=== PATIENT | male | born 1990 | race Two or more races ===

== ENCOUNTER 2019-04-03 16:28 | Inpatient (IN) | payer SELFPAY ==
[~2019-04-03] VITALS: Ht 172.7 cm; Wt 83.9 kg
[2019-04-03] MEDS ORDERED: HYDROcodone/APAP 5/325MG 1 TAB TABLET PO ONE (17:00)
[2019-04-03] MEDS ORDERED: ORPHENADRINE CITRATE 60 MG/2 ML VIAL. IM ONE (17:30)
[2019-04-03] MEDS ORDERED: IBUPROFEN 200 MG TABLET. PO ONE (17:30)
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
--- NOTE | 2019-04-03 18:10 | RAD ---
Exam: Right ankle 3 views. Right tib-fib 2 views. Right and left foot 3 views INDICATION: Pain TECHNIQUE: Frontal, lateral and oblique views of the right ankle, right and left feet. Frontal and lateral views of the right tib-fib Comparisons: None FINDINGS: Right ankle: There is a comminuted obliquely oriented fracture through the lateral malleolus extending to the tibiotalar joint. Transverse fracture at the medial malleolus which extends to the tibiotalar joint. There is mild translocation of the talus laterally at the tibiotalar joint. Right foot: No other fractures are seen. Bone mineralization is normal. Joint spaces are well-maintained. Left foot: Obliquely oriented fracture at the mid to distal fifth metatarsal with some surrounding callus formation. Joint spaces are well-maintained. Soft tissues are unremarkable. Right tib-fib: Redemonstration of distal tibia and fibula fractures. No other fracture seen. Diffuse soft tissue swelling of the ankle. IMPRESSION: 1. Obliquely oriented fracture at the lateral malleolus extending into the tibiotalar joint. There is mild to moderate displacement at the fracture site. 2. Transverse fracture at the medial malleolus with moderate displacement at the fracture site. 3. Lateral translocation of the talus in relation to the tibia at the tibiotalar joint. 4. Obliquely oriented fracture at the left fifth metatarsal with some callus formation suggesting subacute pathology. Correlate with point tenderness. 5. No acute osseous abnormality of the right foot. Electronically signed by: Kale Silva MD (04/03/2019 6:07 PM) [id number]
[2019-04-03 18:46] LABS: BASO % 0 % (0-3); EOS % 0 % (0-3); HEMATOCRIT 38.2 % (39.0-53.0); HEMOGLOBIN 13.6 g/dL (13.0-17.5); LYMPH # 0.6 x10^3/uL (1.0-4.8); LYMPH % 11 % (24-48); MEAN CORPUSCULAR HEMOGLOBIN 34 pg (25-35); MEAN CORPUSCULAR HGB CONC 36 g/dL (31-37); MEAN CORPUSCULAR VOLUME 96 fL (79-100); MONO # 0.7 x10^3/uL (0.0-1.1); MONO % 12 % (0-9); NEUT # 4.7 x10^3/uL (1.8-7.7); NEUT % 77 % (31-73); PLATELET COUNT 171 x10^3/uL (140-400); RED CELL DISTRIBUTION WIDTH 12.7 % (11.5-14.5)
[2019-04-03 18:55] LABS: PROTHROMBIN TIME PATIENT 13.4 SEC (11.7-14.0)
[2019-04-03 18:57] LABS: CALCIUM 9.1 mg/dL (8.5-10.1); CREATININE 0.9 mg/dL (0.7-1.3); GFR 101.2; POTASSIUM 3.4 mmol/L (3.5-5.1)
[2019-04-03] MEDS: IV NORMAL SALINE 1000ML BAG 1,000 ML IV SCH (18:59)
[2019-04-03] MEDS ORDERED: ONDANSETRON PF 4 MG/2 ML VIAL. IV PRN (19:00)
[2019-04-03 19:02] LABS: ALBUMIN 4.2 g/dL (3.4-5.0); ALBUMIN/GLOBULIN RATIO 1.4 (1.0-1.7); TOTAL BILIRUBIN 1.9 mg/dL (0.2-1.0); TOTAL PROTEIN 7.3 g/dL (6.4-8.2)
--- NOTE | 2019-04-03 19:14 | RAD ---
CT right foot without contrast TECHNIQUE: Helical multiplanar reconstructed noncontrast CT imaging of the right ankle was acquired renal contrast was given. HISTORY: Abnormal x-ray, and fractures of the right ankle. PQRS statement: CT scans at this facility use dose reduction including either automated exposure control, iterative reconstructions, and /or weight based radiation dosing via mA and kV modification when appropriate to reduce radiation dose to as low as reasonably achievable. COMPARISON: Foot x-rays April 03, 2019. FINDINGS: Small 2 mm chip fracture at the superior aspect of the cuboid on sagittal image 43. Acute traumatic comminuted mildly buckled and angled fracture of the upper aspect of the lateral malleolus and distal fibula metadiaphysis. Fracturing likely involves the general area of the tibiofibular ligament attachment. Acute traumatic transverse oriented fracture of the medial malleolus distracted inferior from the tibial plafond retaining its somewhat normal relationship with the adjacent talus. However the tibial plafond and is subluxed medial relative to the talus by 1.5 cm. There are small subcentimeter osseous loose bodies within the tibiotalar joint anteriorly and posteriorly. No talus osteochondral lesion evident. The talocalcaneal joint is intact. Calcaneus intact. The cuneiforms, navicular and metatarsals and toes are intact. Extensive soft tissue edema and ankle and foot. No obvious entrapment of the tendons within the fractures although the distracted medial malleolus tibial plafond fracture may increase the risk for future entrapment. Os trigonum noted. IMPRESSION: 1. Acute traumatic fractures of the lateral malleolus and medial malleolus with mild lateral subluxation of the tibial plafond at the tibiotalar joint. Numerous subcentimeter osseous intra-articular loose bodies at the tibiotalar joint. 2. Separate small 2 mm chip fracture of the upper cortex of the cuboid. Electronically signed by: Adrian Ferro MD (04/03/2019 7:11 PM) [facility]
[2019-04-03] MEDS: oxyCODONE/APAP 5/325 1 TAB TABLET PO PRN (22:26)
[2019-04-03] MEDS ORDERED: diphenhydrAMINE 50 MG/ML VIAL IVP PRN (22:30)
[2019-04-03 23:00] VITALS: BP 131/85
[2019-04-04] VITALS (12 sets, daily range): BP systolic 108–152; BP diastolic 66–104
[2019-04-04] MEDS: IV NORMAL SALINE 1000ML BAG 1,000 ML IV SCH ×5 (00:24→20:00)
[2019-04-04] MEDS: fentaNYL PF VIAL 100 MCG/2 ML VIAL IV PRN ×3 (00:43→08:17)
[2019-04-04] MEDS ORDERED: IV RINGERS,LACTATED 1000ML 1,000 ML IV SCH (07:05)
[2019-04-04] MEDS ORDERED: MORPHINE SULFATE 2 MG/ML VIAL. IV PRN (07:15)
[2019-04-04] MEDS ORDERED: fentaNYL PF VIAL 100 MCG/2 ML VIAL IV PRN ×2 (07:15)
[2019-04-04] MEDS ORDERED: ONDANSETRON PF 4 MG/2 ML VIAL. IV PRN (07:15)
[2019-04-04] MEDS ORDERED: PROCHLORPERAZINE 10 MG/2 ML VIAL. IV PRN (07:15)
[2019-04-04] MEDS ORDERED: HYDROmorphone 2 MG/ML VIAL IV PRN (07:15)
[2019-04-04] MEDS ORDERED: BUPIVACAINE-EPI 0.5%-1:200000 MPF 30 ML VIAL. INJ ONE (07:30)
[2019-04-04] MEDS ORDERED: fentaNYL PF VIAL 100 MCG/2 ML VIAL ONE ×4 (07:54→11:24)
[2019-04-04] MEDS ORDERED: PROPOFOL 20 ML IV ONE (07:57)
[2019-04-04] MEDS ORDERED: LIDOCAINE 2% PF 5 ML VIAL. ONE (07:57)
[2019-04-04] MEDS ORDERED: DEXAMETHASONE SOD PHOS 4 MG/ML VIAL ONE (07:57)
[2019-04-04] MEDS ORDERED: ONDANSETRON PF 4 MG/2 ML VIAL. ONE (07:57)
[2019-04-04] MEDS ORDERED: MIDAZOLAM HCL/PF 2 MG/2 ML VIAL. ONE (07:58)
[2019-04-04] MEDS ORDERED: SEVOFLURANE 61 TO 120 MINUTES. IH ONE (09:36)
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
[2019-04-04] MEDS: oxyCODONE/APAP 5/325 1 TAB TABLET PO PRN ×3 (12:25→21:02)
[2019-04-04] MEDS ORDERED: HALOPERIDOL LACTATE 5 MG/ML VIAL. IVP PRN (12:30)
[2019-04-04] MEDS ORDERED: cloNIDine HCL 0.1 MG TABLET PO PRN (12:30)
[2019-04-04] MEDS ORDERED: LORazepam 1 MG TABLET PO PRN ×2 (12:30)
[2019-04-04] MEDS ORDERED: diphenhydrAMINE 50 MG/ML VIAL IVP PRN (12:30)
[2019-04-04] MEDS ORDERED: POTASSIUM CHLORIDE 20 MEQ TABLET.ER. PO ONE (12:30)
[2019-04-04] MEDS ORDERED: MULTIVIT INFUSN,ADULT 4,VIT K 10 ML, THIAMINE INJ 100 MG, FOLIC ACID INJ 1 MG in IV NOR... IV SCH (13:00)
--- NOTE | 2019-04-04 13:33 | NUR ---
SS following for discharge planning. SS reviewed pt chart. Pt is self pay pt. HCFS following for self pay status. Pt is from home and is currently on room air. No discharge needs noted at this time. SS will continue to follow for discharge planning.
--- NOTE | 2019-04-04 17:19 | PDOC4 ---
Operative Note Operative Note Date of surgery: 04/04/2019 Preoperative diagnosis: Displaced bimalleolar right ankle fracture Postoperative diagnosis: Same Procedure: Operative reduction internal fixation right bimalleolar ankle fracture Surgeon: Chris Dias Anesthesia: Gen. Estimated blood loss: 25 mL Complications: None Operative indications: Please see my detailed orthopedic consultation for detailed operative indications and note that I did cover with him the instability of the ankle the necessity of reduction and fixation and the nonweightbearing status depending on his healing possibility of infection nerve or blood vessel damage medical or other anesthetic competitions among others and the fact that he has to keep off of this with strict nonweightbearing elevate and ice to help with the swelling to avoid wound complications. He agrees to proceed with surgical evaluation and treatment. Operative text: Patient was identified procedure verified patient placed in the supine position on operating table. After adequate amounts of general anesthesia were administered the right lower extremity was prepped and draped in standard sterile fashion with a thigh tourniquet. After timeout was performed patient pr ocedure identified and verified the right lower extremity was exsanguinated by elevation and tourniquet inflated to 350 mmHg curvilinear incision was made over the medial malleolus. Subperiosteal dissection was carried out and 2 guidewires were placed to accommodate 4.0 cannulated screws with anatomic reduction of the medial malleolus lateral approach was carried out to the distal fibula with subperiosteal dissection carried out anatomic reduction and a 6-hole Ken distal fibular locking plate was placed an initial cortical screw was placed for placement distal locking screws were then placed under fluoroscopic guidance and the remainder of cortical screws placed with anatomic reduction of the talus in the ankle joint mortise and satisfactory reduction and placement of hardware under multiple fluoroscopic views thorough irrigation carried out normal saline solution subcutaneous closure with buried Vicryl suture skin closure with dennys sterile dressings were applied followed by a posterior splint. Patient was returned to recovery room in stable condition having tolerated the procedure well toes were noted be warm pink find deflation of the tourniquet after a total tourniquet time approximately 1 hour LULÚ MCGOWAN MD Apr 04, 2019 17:19
[2019-04-04 20:18] LABS: AMPHETAMINE/METHAMPHETAMINE NEG (NEG); BARBITURATES NEG (NEG); BENZODIAZEPINES POS (NEG); CANNABINOIDS POS (NEG); COCAINE NEG (NEG); METHADONE NEG (NEG); OPIATES POS (NEG); PHENCYCLIDINE NEG (NEG)
[2019-04-05] MEDS: oxyCODONE/APAP 5/325 1 TAB TABLET PO PRN ×5 (01:04→19:47)
[2019-04-05 03:00] VITALS: BP 118/72
[2019-04-05] MEDS: IV NORMAL SALINE 1000ML BAG 1,000 ML IV SCH ×2 (06:00→16:00)
[2019-04-05 06:23] LABS: BASO % 0 % (0-3); EOS % 0 % (0-3); HEMATOCRIT 32.6 % (39.0-53.0); HEMOGLOBIN 11.7 g/dL (13.0-17.5); LYMPH # 1.2 x10^3/uL (1.0-4.8); LYMPH % 16 % (24-48); MEAN CORPUSCULAR HEMOGLOBIN 35 pg (25-35); MEAN CORPUSCULAR HGB CONC 36 g/dL (31-37); MEAN CORPUSCULAR VOLUME 97 fL (79-100); MONO # 1.2 x10^3/uL (0.0-1.1); MONO % 16 % (0-9); NEUT # 5.1 x10^3/uL (1.8-7.7); NEUT % 68 % (31-73); PLATELET COUNT 162 x10^3/uL (140-400); RED BLOOD COUNT 3.37 x10^6/uL (4.30-5.70); RED CELL DISTRIBUTION WIDTH 12.4 % (11.5-14.5); WHITE BLOOD COUNT 7.4 x10^3/uL (4.0-11.0)
[2019-04-05 06:42] LABS: ALBUMIN 3.1 g/dL (3.4-5.0); CALCIUM 8.4 mg/dL (8.5-10.1); CREATININE 0.7 mg/dL (0.7-1.3); GFR 135.3; POTASSIUM 3.5 mmol/L (3.5-5.1); TOTAL BILIRUBIN 0.7 mg/dL (0.2-1.0); TOTAL PROTEIN 6.3 g/dL (6.4-8.2)
[2019-04-05 07:00] VITALS: BP 109/69
[2019-04-05] MEDS ORDERED: POTASSIUM CHLORIDE 20 MEQ TABLET.ER. PO SCH (08:00)
--- NOTE | 2019-04-05 08:56 | PDOC ---
ORTHO PROGRESS NOTES Subjective Patient states pain remains at 7/10, and states he cannot bear weight on left foot r/t fractured metatarsal. Post-op Day: 1 Procedure ORIF Right ankle fracture with plate and screws. Vitals Vital Signs Date Time Temp Pulse Resp B/P (MAP) Pulse Ox O2 Delivery O2 Flow Rate FiO2 04/05/19 07:00 98.2 91 18 109/69 (82) 97 Room Air 98.2 04/04/19 18:20 10.0 Labs Laboratory Tests Test 04/03/19 18:40 04/04/19 19:48 04/05/19 05:00 White Blood Count 6.0 x10^3/uL (4.0-11.0) 7.4 x10^3/uL (4.0-11.0) Red Blood Count 4.00 x10^6/uL (4.30-5.70) 3.37 x10^6/uL (4.30-5.70) Hemoglobin 13.6 g/dL (13.0-17.5) 11.7 g/dL (13.0-17.5) Hematocrit 38.2 % (39.0-53.0) 32.6 % (39.0-53.0) Mean Corpuscular Volume 96 fL (79-100) 97 fL (79-100) Mean Corpuscular Hemoglobin 34 pg (25-35) 35 pg (25-35) Mean Corpuscular Hemoglobin Concent 36 g/dL (31-37) 36 g/dL (31-37) Red Cell Distribution Width 12.7 % (11.5-14.5) 12.4 % (11.5-14.5) Platelet Count 171 x10^3/uL (140-400) 162 x10^3/uL (140-400) Neutrophils (%) (Auto) 77 % (31-73) 68 % (31-73) Lymphocytes (%) (Auto) 11 % (24-48) 16 % (24-48) Monocytes (%) (Auto) 12 % (0-9) 16 % (0-9) Eosinophils (%) (Auto) 0 % (0-3) 0 % (0-3) Basophils (%) (Auto) 0 % (0-3) 0 % (0-3) Neutrophils # (Auto) 4.7 x10^3/uL (1.8-7.7) 5.1 x10^3/uL (1.8-7.7) Lymphocytes # (Auto) 0.6 x10^3/uL (1.0-4.8) 1.2 x10^3/uL (1.0-4.8) Monocytes # (Auto) 0.7 x10^3/uL (0.0-1.1) 1.2 x10^3/uL (0.0-1.1) Eosinophils # (Auto) 0.0 x10^3/uL (0.0-0.7) 0.0 x10^3/uL (0.0-0.7) Basophils # (Auto) 0.0 x10^3/uL (0.0-0.2) 0.0 x10^3/uL (0.0-0.2) Prothrombin Time 13.4 SEC (11.7-14.0) Prothromb Time International Ratio 1.1 (0.8-1.1) Sodium Level 136 mmol/L (136-145) 139 mmol/L (136-145) Potassium Level 3.4 mmol/L (3.5-5.1) 3.5 mmol/L (3.5-5.1) Chloride Level 97 mmol/L (98-107) 102 mmol/L (98-107) Carbon Dioxide Level 29 mmol/L (21-32) 27 mmol/L (21-32) Anion Gap 10 (6-14) 10 (6-14) Blood Urea Nitrogen 8 mg/dL (8-26) 3 mg/dL (8-26) Creatinine 0.9 mg/dL (0.7-1.3) 0.7 mg/dL (0.7-1.3) Estimated GFR (Cockcroft-Gault) 101.2 135.3 BUN/Creatinine Ratio 9 (6-20) 4 (6-20) Glucose Level 172 mg/dL (70-99) 106 mg/dL (70-99) Calcium Level 9.1 mg/dL (8.5-10.1) 8.4 mg/dL (8.5-10.1) Total Bilirubin 1.9 mg/dL (0.2-1.0) 0.7 mg/dL (0.2-1.0) Aspartate Amino Transf (AST/SGOT) 82 U/L (15-37) 41 U/L (15-37) Alanine Aminotransferase (ALT/SGPT) 100 U/L (16-63) 61 U/L (16-63) Alkaline Phosphatase 91 U/L (46-116) 69 U/L (46-116) Total Protein 7.3 g/dL (6.4-8.2) 6.3 g/dL (6.4-8.2) Albumin 4.2 g/dL (3.4-5.0) 3.1 g/dL (3.4-5.0) Albumin/Globulin Ratio 1.4 (1.0-1.7) 1.0 (1.0-1.7) Urine Opiates Screen Pos (NEG) Urine Methadone Screen Neg (NEG) Urine Barbiturates Neg (NEG) Urine Phencyclidine Screen Neg (NEG) Urine Amphetamine/Methamphetamine Neg (NEG) Urine Benzodiazepines Screen Pos (NEG) Urine Cocaine Screen Neg (NEG) Urine Cannabinoids Screen Pos (NEG) Urine Ethyl Alcohol Neg (NEG) Laboratory Tests Test 04/04/19 19:48 04/05/19 05:00 Urine Opiates Screen Pos (NEG) Urine Methadone Screen Neg (NEG) Urine Barbiturates Neg (NEG) Urine Phencyclidine Screen Neg (NEG) Urine Amphetamine/Methamphetamine Neg (NEG) Urine Benzodiazepines Screen Pos (NEG) Urine Cocaine Screen Neg (NEG) Urine Cannabinoids Screen Pos (NEG) Urine Ethyl Alcohol Neg (NEG) White Blood Count 7.4 x10^3/uL (4.0-11.0) Red Blood Count 3.37 x10^6/uL (4.30-5.70) Hemoglobin 11.7 g/dL (13.0-17.5) Hematocrit 32.6 % (39.0-53.0) Mean Corpuscular Volume 97 fL (79-100) Mean Corpuscular Hemoglobin 35 pg (25-35) Mean Corpuscular Hemoglobin Concent 36 g/dL (31-37) Red Cell Distribution Width 12.4 % (11.5-14.5) Platelet Count 162 x10^3/uL (140-400) Neutrophils (%) (Auto) 68 % (31-73) Lymphocytes (%) (Auto) 16 % (24-48) Monocytes (%) (Auto) 16 % (0-9) Eosinophils (%) (Auto) 0 % (0-3) Basophils (%) (Auto) 0 % (0-3) Neutrophils # (Auto) 5.1 x10^3/uL (1.8-7.7) Lymphocytes # (Auto) 1.2 x10^3/uL (1.0-4.8) Monocytes # (Auto) 1.2 x10^3/uL (0.0-1.1) Eosinophils # (Auto) 0.0 x10^3/uL (0.0-0.7) Basophils # (Auto) 0.0 x10^3/uL (0.0-0.2) Sodium Level 139 mmol/L (136-145) Potassium Level 3.5 mmol/L (3.5-5.1) Chloride Level 102 mmol/L (98-107) Carbon Dioxide Level 27 mmol/L (21-32) Anion Gap 10 (6-14) Blood Urea Nitrogen 3 mg/dL (8-26) Creatinine 0.7 mg/dL (0.7-1.3) Estimated GFR (Cockcroft-Gault) 135.3 BUN/Creatinine Ratio 4 (6-20) Glucose Level 106 mg/dL (70-99) Calcium Level 8.4 mg/dL (8.5-10.1) Total Bilirubin 0.7 mg/dL (0.2-1.0) Aspartate Amino Transf (AST/SGOT) 41 U/L (15-37) Alanine Aminotransferase (ALT/SGPT) 61 U/L (16-63) Alkaline Phosphatase 69 U/L (46-116) Total Protein 6.3 g/dL (6.4-8.2) Albumin 3.1 g/dL (3.4-5.0) Albumin/Globulin Ratio 1.0 (1.0-1.7) Notes awake and alert Assessment and Plan POD # 1 S/P ORIF right ankle fracture motor and sensory intact distally moving toes on request splint in place Will need cast shoe for left foot for ambulation PT for crutch training NAHED FERNANDEZ APRN Apr 05, 2019 08:56
[2019-04-05] MEDS ORDERED: MULTIVITAMIN with MINERAL TABLET. PO SCH (09:00)
[2019-04-05] MEDS ORDERED: FOLIC ACID 1 MG TABLET. PO SCH (09:00)
[2019-04-05] MEDS ORDERED: THIAMINE 100 MG TABLET. PO SCH (09:00)
[2019-04-05] MEDS ORDERED: THIAMINE INJ 100 MG in IV DEXTROSE 5% 50 ML IV SCH (09:00)
[2019-04-05] MEDS ORDERED: THIAMINE IM 200 MG/2 ML VIAL. IM SCH (09:00)
--- NOTE | 2019-04-05 10:50 | PDOC ---
PROGRESS NOTES History of Present Illness History of Present Illness VTE Prophylaxis Ordered VTE Prophylaxis Devices: No VTE Pharmacological Prophylaxi: Yes Assessment/Plan Assessment/Plan IMPRESSION: 1. Obliquely oriented fracture at the lateral malleolus extending into the tibiotalar joint. There is mild to moderate displacement at the fracture site. 2. Transverse fracture at the medial malleolus with moderate displacement at the fracture site. 3. Lateral translocation of the talus in relation to the tibia at the tibiotalar joint. 4. Obliquely oriented fracture at the left fifth metatarsal with some callus formation suggesting subacute pathology. 5. obesity 6. THC ABUSE 7. ALCOHOL ABUSE PLAN ADMIT [facility]TH[facility] following po PAIN CONTROL DVT PROPHYLAXIS ALCOHOL WITHDRAWAL PRECAUTIONS PT for crutch training 34 MIN PT EXAM, CHART REVIEW d/c planning, > 50% OF TIME SPENT WITH EXAM, CHART REVIEW, PT CARE COORDINATION Vitals Vitals Vital Signs Date Time Temp Pulse Resp B/P (MAP) Pulse Ox O2 Delivery O2 Flow Rate FiO2 04/05/19 09:01 Room Air 04/05/19 07:00 98.2 91 18 109/69 (82) 97 98.2 04/04/19 18:20 10.0 Physical Exam General: Alert, Oriented X3, Cooperative, mild distress Heart: Regular rate, Normal S1, Normal S2 Abdomen: Normal bowel sounds, Soft Extremities: No cyanosis Skin: No significant lesion Labs LABS Laboratory Tests Test 04/04/19 19:48 04/05/19 05:00 Urine Opiates Screen Pos (NEG) Urine Methadone Screen Neg (NEG) Urine Barbiturates Neg (NEG) Urine Phencyclidine Screen Neg (NEG) Urine Amphetamine/Methamphetamine Neg (NEG) Urine Benzodiazepines Screen Pos (NEG) Urine Cocaine Screen Neg (NEG) Urine Cannabinoids Screen Pos (NEG) Urine Ethyl Alcohol Neg (NEG) White Blood Count 7.4 x10^3/uL (4.0-11.0) Red Blood Count 3.37 x10^6/uL (4.30-5.70) Hemoglobin 11.7 g/dL (13.0-17.5) Hematocrit 32.6 % (39.0-53.0) Mean Corpuscular Volume 97 fL (79-100) Mean Corpuscular Hemoglobin 35 pg (25-35) Mean Corpuscular Hemoglobin Concent 36 g/dL (31-37) Red Cell Distribution Width 12.4 % (11.5-14.5) Platelet Count 162 x10^3/uL (140-400) Neutrophils (%) (Auto) 68 % (31-73) Lymphocytes (%) (Auto) 16 % (24-48) Monocytes (%) (Auto) 16 % (0-9) Eosinophils (%) (Auto) 0 % (0-3) Basophils (%) (Auto) 0 % (0-3) Neutrophils # (Auto) 5.1 x10^3/uL (1.8-7.7) Lymphocytes # (Auto) 1.2 x10^3/uL (1.0-4.8) Monocytes # (Auto) 1.2 x10^3/uL (0.0-1.1) Eosinophils # (Auto) 0.0 x10^3/uL (0.0-0.7) Basophils # (Auto) 0.0 x10^3/uL (0.0-0.2) Sodium Level 139 mmol/L (136-145) Potassium Level 3.5 mmol/L (3.5-5.1) Chloride Level 102 mmol/L (98-107) Carbon Dioxide Level 27 mmol/L (21-32) Anion Gap 10 (6-14) Blood Urea Nitrogen 3 mg/dL (8-26) Creatinine 0.7 mg/dL (0.7-1.3) Estimated GFR (Cockcroft-Gault) 135.3 BUN/Creatinine Ratio 4 (6-20) Glucose Level 106 mg/dL (70-99) Calcium Level 8.4 mg/dL (8.5-10.1) Total Bilirubin 0.7 mg/dL (0.2-1.0) Aspartate Amino Transf (AST/SGOT) 41 U/L (15-37) Alanine Aminotransferase (ALT/SGPT) 61 U/L (16-63) Alkaline Phosphatase 69 U/L (46-116) Total Protein 6.3 g/dL (6.4-8.2) Albumin 3.1 g/dL (3.4-5.0) Albumin/Globulin Ratio 1.0 (1.0-1.7) Assessment and Plan Assessmemt and Plan Problems Medical Problems: (1) Fracture of fifth metacarpal bone Status: Acute (2) Malleolar fracture Status: Acute (3) Tibia fracture Status: Acute Comment Review of Relevant I have reviewed the following items stephanie (where applicable) has been applied. Labs Laboratory Tests Test 04/03/19 18:40 04/04/19 19:48 04/05/19 05:00 White Blood Count 6.0 x10^3/uL (4.0-11.0) 7.4 x10^3/uL (4.0-11.0) Red Blood Count 4.00 x10^6/uL (4.30-5.70) 3.37 x10^6/uL (4.30-5.70) Hemoglobin 13.6 g/dL (13.0-17.5) 11.7 g/dL (13.0-17.5) Hematocrit 38.2 % (39.0-53.0) 32.6 % (39.0-53.0) Mean Corpuscular Volume 96 fL (79-100) 97 fL (79-100) Mean Corpuscular Hemoglobin 34 pg (25-35) 35 pg (25-35) Mean Corpuscular Hemoglobin Concent 36 g/dL (31-37) 36 g/dL (31-37) Red Cell Distribution Width 12.7 % (11.5-14.5) 12.4 % (11.5-14.5) Platelet Count 171 x10^3/uL (140-400) 162 x10^3/uL (140-400) Neutrophils (%) (Auto) 77 % (31-73) 68 % (31-73) Lymphocytes (%) (Auto) 11 % (24-48) 16 % (24-48) Monocytes (%) (Auto) 12 % (0-9) 16 % (0-9) Eosinophils (%) (Auto) 0 % (0-3) 0 % (0-3) Basophils (%) (Auto) 0 % (0-3) 0 % (0-3) Neutrophils # (Auto) 4.7 x10^3/uL (1.8-7.7) 5.1 x10^3/uL (1.8-7.7) Lymphocytes # (Auto) 0.6 x10^3/uL (1.0-4.8) 1.2 x10^3/uL (1.0-4.8) Monocytes # (Auto) 0.7 x10^3/uL (0.0-1.1) 1.2 x10^3/uL (0.0-1.1) Eosinophils # (Auto) 0.0 x10^3/uL (0.0-0.7) 0.0 x10^3/uL (0.0-0.7) Basophils # (Auto) 0.0 x10^3/uL (0.0-0.2) 0.0 x10^3/uL (0.0-0.2) Prothrombin Time 13.4 SEC (11.7-14.0) Prothromb Time International Ratio 1.1 (0.8-1.1) Sodium Level 136 mmol/L (136-145) 139 mmol/L (136-145) Potassium Level 3.4 mmol/L (3.5-5.1) 3.5 mmol/L (3.5-5.1) Chloride Level 97 mmol/L (98-107) 102 mmol/L (98-107) Carbon Dioxide Level 29 mmol/L (21-32) 27 mmol/L (21-32) Anion Gap 10 (6-14) 10 (6-14) Blood Urea Nitrogen 8 mg/dL (8-26) 3 mg/dL (8-26) Creatinine 0.9 mg/dL (0.7-1.3) 0.7 mg/dL (0.7-1.3) Estimated GFR (Cockcroft-Gault) 101.2 135.3 BUN/Creatinine Ratio 9 (6-20) 4 (6-20) Glucose Level 172 mg/dL (70-99) 106 mg/dL (70-99) Calcium Level 9.1 mg/dL (8.5-10.1) 8.4 mg/dL (8.5-10.1) Total Bilirubin 1.9 mg/dL (0.2-1.0) 0.7 mg/dL (0.2-1.0) Aspartate Amino Transf (AST/SGOT) 82 U/L (15-37) 41 U/L (15-37) Alanine Aminotransferase (ALT/SGPT) 100 U/L (16-63) 61 U/L (16-63) Alkaline Phosphatase 91 U/L (46-116) 69 U/L (46-116) Total Protein 7.3 g/dL (6.4-8.2) 6.3 g/dL (6.4-8.2) Albumin 4.2 g/dL (3.4-5.0) 3.1 g/dL (3.4-5.0) Albumin/Globulin Ratio 1.4 (1.0-1.7) 1.0 (1.0-1.7) Urine Opiates Screen Pos (NEG) Urine Methadone Screen Neg (NEG) Urine Barbiturates Neg (NEG) Urine Phencyclidine Screen Neg (NEG) Urine Amphetamine/Methamphetamine Neg (NEG) Urine Benzodiazepines Screen Pos (NEG) Urine Cocaine Screen Neg (NEG) Urine Cannabinoids Screen Pos (NEG) Urine Ethyl Alcohol Neg (NEG) Laboratory Tests Test 04/04/19 19:48 04/05/19 05:00 Urine Opiates Screen Pos (NEG) Urine Methadone Screen Neg (NEG) Urine Barbiturates Neg (NEG) Urine Phencyclidine Screen Neg (NEG) Urine Amphetamine/Methamphetamine Neg (NEG) Urine Benzodiazepines Screen Pos (NEG) Urine Cocaine Screen Neg (NEG) Urine Cannabinoids Screen Pos (NEG) Urine Ethyl Alcohol Neg (NEG) White Blood Count 7.4 x10^3/uL (4.0-11.0) Red Blood Count 3.37 x10^6/uL (4.30-5.70) Hemoglobin 11.7 g/dL (13.0-17.5) Hematocrit 32.6 % (39.0-53.0) Mean Corpuscular Volume 97 fL (79-100) Mean Corpuscular Hemoglobin 35 pg (25-35) Mean Corpuscular Hemoglobin Concent 36 g/dL (31-37) Red Cell Distribution Width 12.4 % (11.5-14.5) Platelet Count 162 x10^3/uL (140-400) Neutrophils (%) (Auto) 68 % (31-73) Lymphocytes (%) (Auto) 16 % (24-48) Monocytes (%) (Auto) 16 % (0-9) Eosinophils (%) (Auto) 0 % (0-3) Basophils (%) (Auto) 0 % (0-3) Neutrophils # (Auto) 5.1 x10^3/uL (1.8-7.7) Lymphocytes # (Auto) 1.2 x10^3/uL (1.0-4.8) Monocytes # (Auto) 1.2 x10^3/uL (0.0-1.1) Eosinophils # (Auto) 0.0 x10^3/uL (0.0-0.7) Basophils # (Auto) 0.0 x10^3/uL (0.0-0.2) Sodium Level 139 mmol/L (136-145) Potassium Level 3.5 mmol/L (3.5-5.1) Chloride Level 102 mmol/L (98-107) Carbon Dioxide Level 27 mmol/L (21-32) Anion Gap 10 (6-14) Blood Urea Nitrogen 3 mg/dL (8-26) Creatinine 0.7 mg/dL (0.7-1.3) Estimated GFR (Cockcroft-Gault) 135.3 BUN/Creatinine Ratio 4 (6-20) Glucose Level 106 mg/dL (70-99) Calcium Level 8.4 mg/dL (8.5-10.1) Total Bilirubin 0.7 mg/dL (0.2-1.0) Aspartate Amino Transf (AST/SGOT) 41 U/L (15-37) Alanine Aminotransferase (ALT/SGPT) 61 U/L (16-63) Alkaline Phosphatase 69 U/L (46-116) Total Protein 6.3 g/dL (6.4-8.2) Albumin 3.1 g/dL (3.4-5.0) Albumin/Globulin Ratio 1.0 (1.0-1.7) Medications Current Medications Acetaminophen/ Hydrocodone Bitart (Lortab 5/325) 1 tab 1X ONCE PO Last administered on 04/03/19at 17:00; Start 04/03/19 at 17:00; Stop 04/03/19 at 17:01; Status DC Ibuprofen (Motrin) 600 mg 1X ONCE PO Last administered on 04/03/19at 17:38; Start 04/03/19 at 17:30; Stop 04/03/19 at 17:31; Status DC Orphenadrine Citrate (Norflex) 60 mg 1X ONCE IM Last administered on 04/03/19at 17:38; Start 04/03/19 at 17:30; Stop 04/03/19 at 17:31; Status DC Ondansetron HCl (Zofran) 4 mg PRN Q8HRS PRN IV NAUSEA/VOMITING; Start 04/03/19 at 19:00; Stop 04/04/19 at 18:59; Status DC Fentanyl Citrate (Fentanyl 2ml Vial) 50 mcg PRN Q1HR PRN IV PAIN Last administered on 04/04/19 08:17; Start 04/03/19 at 19:00; Stop 04/04/19 at 18:59; Status DC Sodium Chloride 1,000 ml @ 100 mls/hr Q10H IV Last administered on 04/04/19 12:26; Start 04/03/19 at 18:59; Stop 04/04/19 at 18:58; Status DC Diphenhydramine HCl (Benadryl) 25 mg PRN Q6HRS PRN IVP ITCHING; Start 04/03/19 at 22:30 Oxycodone/ Acetaminophen (Percocet 5/325) 1 tab PRN Q4HRS PRN PO SEVERE PAIN 7- 10 Last administered on 04/05/19 09:01; Start 04/03/19 at 22:30 Sodium Chloride 1,000 ml @ 100 mls/hr Q10H IV Last administered on 04/04/19 00:24; Start 04/04/19 at 00:00 Ondansetron HCl (Zofran) 4 mg PRN Q6HRS PRN IV NAUSEA/VOMITING; Start 04/04/19 at 07:15; Stop 04/04/19 at 20:00; Status DC Fentanyl Citrate (Fentanyl 2ml Vial) 25 mcg PRN Q5MIN PRN IV MILD PAIN 1-3 Last administered on 04/04/19 11:27; Start 04/04/19 at 07:15; Stop 04/04/19 at 20:00; Status DC Fentanyl Citrate (Fentanyl 2ml Vial) 50 mcg PRN Q5MIN PRN IV MODERATE TO SEVERE PAIN Last administered on 04/04/19 10:47; Start 04/04/19 at 07:15; Stop 04/04/19 at 20:00; Status DC Morphine Sulfate (Morphine Sulfate) 1 mg PRN Q10MIN PRN IV SEVERE PAIN 7-10; Start 04/04/19 at 07:15; Stop 04/04/19 at 20:00; Status DC Ringer's Solution 1,000 ml @ 30 mls/hr Q24H IV ; Start 04/04/19 at 07:05; Stop 04/04/19 at 19:04; Status DC Hydromorphone HCl (Dilaudid) 0.5 mg PRN Q10MIN PRN IV SEV PAIN, Second choice; Start 04/04/19 at 07:15; Stop 04/04/19 at 20:00; Status DC Prochlorperazine Edisylate (Compazine) 5 mg PACU PRN PRN IV NAUSEA, MRX1; Start 04/04/19 at 07:15; Stop 04/04/19 at 20:00; Status DC Bupivacaine HCl/ Epinephrine Bitart (Sensorcain-Mpf Epi 0.5%-[id number]) 30 ml 1X ONCE INJ Last administered on 04/04/19at 10:28; Start 04/04/19 at 07:30; Stop 04/04/19 at 07:31; Status DC Cefazolin Sodium/ Dextrose 50 ml @ 100 mls/hr 1X ONCE IV Last administered on 04/04/19at 09:34; Start 04/04/19 at 07:45; Stop 04/04/19 at 08:14; Status DC Fentanyl Citrate (Fentanyl 2ml Vial) 100 mcg STK-MED ONCE .ROUTE ; Start 04/04/19 at 07:54; Stop 04/04/19 at 07:54; Status DC Propofol 20 ml @ As Directed STK-MED ONCE IV ; Start 04/04/19 at 07:57; Stop 04/04/19 at 07:58; Status DC Dexamethasone Sodium Phosphate (Decadron) 4 mg STK-MED ONCE .ROUTE ; Start 04/04/19 at 07:57; Stop 04/04/19 at 07:58; Status DC Lidocaine HCl (Lidocaine Pf 2% Vial) 5 ml STK-MED ONCE .ROUTE ; Start 04/04/19 at 07:57; Stop 04/04/19 at 07:58; Status DC Ondansetron HCl (Zofran) 4 mg STK-MED ONCE .ROUTE ; Start 04/04/19 at 07:57; Stop 04/04/19 at 07:58; Status DC Fentanyl Citrate (Fentanyl 2ml Vial) 100 mcg STK-MED ONCE .ROUTE ; Start 04/04/19 at 07:57; Stop 04/04/19 at 07:58; Status DC Midazolam HCl (Versed) 2 mg STK-MED ONCE .ROUTE ; Start 04/04/19 at 07:58; Stop 04/04/19 at 07:58; Status DC Sevoflurane (Ultane) 60 ml STK-MED ONCE IH ; Start 04/04/19 at 09:36; Stop 04/04/19 at 09:36; Status DC Fentanyl Citrate (Fentanyl 2ml Vial) 100 mcg STK-MED ONCE .ROUTE ; Start 04/04/19 at 10:44; Stop 04/04/19 at 10:45; Status DC Fentanyl Citrate (Fentanyl 2ml Vial) 100 mcg STK-MED ONCE .ROUTE ; Start 04/04/19 at 11:24; Stop 04/04/19 at 11:25; Status DC Multivitamins 10 ml/Thiamine HCl 100 mg/Folic Acid 1 mg/Sodium Chloride 1,011.2 ml @ 100 mls/ hr DAILY IV Last administered on 04/04/19at 14:37; Start 04/04/19 at 13:00; Stop 04/04/19 at 23:07; Status DC Folic Acid (Folic Acid) 1 mg DAILY PO Last administered on 04/05/19at 08:35; Start 04/05/19 at 09:00 Thiamine HCl 100 mg DAILY IM ; Start 04/05/19 at 09:00; Stop 04/10/19 at 08:59; Status UNV Thiamine HCl 100 mg/Dextrose 51 ml @ 100 mls/hr DAILY IV ; Start 04/05/19 at 09:00; Stop 04/09/19 at 09:31; Status UNV Lorazepam (Ativan) 4 mg PRN Q1HR PRN PO For CIWA 8-14; Start 04/04/19 at 12:30 Lorazepam (Ativan) 8 mg PRN Q1HR PRN PO For CIWA 15 or greater; Start 04/04/19 at 12:30 Lorazepam (Ativan Inj) 2 mg PRN Q1HR PRN IV For CIWA 8-14; Start 04/04/19 at 12:30 Lorazepam (Ativan Inj) 4 mg PRN Q1HR PRN IV For CIWA 15 or greater; Start 04/04/19 at 12:30 Haloperidol Lactate (Haldol Inj) 5 mg PRN Q4HRS PRN IVP Hallucinatns,Confusn,Delirium; Start 04/04/19 at 12:30 Diphenhydramine HCl (Benadryl) 25 mg PRN Q15MIN PRN IVP EPS symptoms 2'Haldol admin; Start 04/04/19 at 12:30 Clonidine HCl (Catapres) 0.1 mg PRN Q1HR PRN PO SBP > 180 or DBP > 100, MRX3; Start 04/04/19 at 12:30 Lorazepam (Ativan Inj) 2 mg PRN Q15MIN PRN IV SEE COMMENTS; Start 04/04/19 at 12:30; Status UNV Lorazepam (Ativan Inj) 4 mg PRN Q15MIN PRN IV SEE COMMENTS; Start 04/04/19 at 12:30; Status UNV Potassium Chloride (Klor-Con) 40 meq 1X ONCE PO Last administered on 04/04/19at 14:37; Start 04/04/19 at 12:30; Stop 04/04/19 at 12:34; Status DC Potassium Chloride (Klor-Con) 20 meq [id number] PO Last administered on 04/05/19at 08:35; Start 04/05/19 at 08:00 Thiamine Mononitrate (Vitamin B-1) 100 mg DAILY PO Last administered on 04/05/19at 08:35; Start 04/05/19 at 09:00 Multivitamins (Thera M Plus) 1 tab DAILY PO Last administered on 04/05/19at 08:35; Start 04/05/19 at 09:00 Oxycodone/ Acetaminophen (Percocet 5/325) 2 tab PRN Q6HRS PRN PO PAIN; Start 04/05/19 at 09:15 Vitals/I & O Vital Sign - Last 24 Hours 04/04/19 04/04/19 04/04/19 04/04/19 10:55 11:25 11:27 11:37 Temp 97.1 97.1 97.1 97.1 Pulse 78 76 80 Resp 18 18 18 B/P (MAP) 126/87 138/89 135/87 (103) Pulse Ox 100 100 95 94 O2 Delivery Simple Mask Room Air Room Air O2 Flow Rate 10.0 04/04/19 04/04/19 04/04/19 04/04/19 11:43 11:59 12:13 12:21 Pulse 90 73 65 B/P (MAP) 133/89 (104) 133/90 (104) 132/78 (96) Pulse Ox 90 95 91 95 O2 Delivery Room Air 04/04/19 04/04/19 04/04/19 04/04/19 12:26 12:28 12:43 13:13 Pulse 94 96 68 B/P (MAP) 151/104 (120) 152/75 (100) 118/66 (83) Pulse Ox 95 95 93 O2 Delivery Room Air 04/04/19 04/04/19 04/04/19 04/04/19 14:13 14:37 15:00 16:56 Temp 98.4 98.4 Pulse 62 64 Resp 18 B/P (MAP) 111/75 (87) 108/68 (81) Pulse Ox 95 96 96 O2 Delivery Room Air Room Air Room Air O2 Flow Rate 10.0 10.0 04/04/19 04/04/19 04/04/19 04/04/19 18:20 19:00 20:15 21:02 Temp 98.7 98.7 Pulse 82 Resp 18 18 B/P (MAP) 120/86 (97) Pulse Ox 96 96 O2 Delivery Room Air Room Air Room Air Room Air O2 Flow Rate 10.0 04/04/19 04/04/19 04/05/19 04/05/19 23:00 23:51 01:04 02:18 Temp 99.2 99.2 Pulse 118 Resp 18 16 14 14 B/P (MAP) 143/80 (101) Pulse Ox 95 O2 Delivery Room Air Room Air Room Air Room Air 04/05/19 04/05/19 04/05/19 04/05/19 03:00 05:09 06:33 07:00 Temp 99.1 98.2 99.1 98.2 Pulse 80 91 Resp 18 16 16 18 B/P (MAP) 118/72 (87) 109/69 (82) Pulse Ox 97 97 O2 Delivery Room Air Room Air Room Air Room Air 04/05/19 09:01 O2 Delivery Room Air Intake and Output 04/04/19 04/04/19 04/05/19 15:00 23:00 07:00 Intake Total 500 ml 750 ml Output Total 25 ml 400 ml 1000 ml Balance 475 ml -400 ml -250 ml MIKALA THOMAS MD Apr 05, 2019 10:50
[2019-04-05 11:00] VITALS: BP 133/66
--- NOTE | 2019-04-05 13:10 | PDOC3 ---
Discharge Summary Date of Admission: Apr 04, 2019 Date of Discharge: Apr 05, 2019 Follow-Up: 3-5 days Admitting Diagnosis comment: Assessment/Plan Assessment/Plan IMPRESSION: 1. Obliquely oriented fracture at the lateral malleolus extending into the tibiotalar joint. There is mild to moderate displacement at the fracture site. 2. Transverse fracture at the medial malleolus with moderate displacement at the fracture site. 3. Lateral translocation of the talus in relation to the tibia at the tibiotalar joint. 4. Obliquely oriented fracture at the left fifth metatarsal with some callus formation suggesting subacute pathology. 5. obesity 6. THC ABUSE 7. ALCOHOL ABUSE PLAN ADMIT [facility] following po PAIN CONTROL DVT PROPHYLAXIS ALCOHOL WITHDRAWAL PRECAUTIONS PT for crutch training front wheeled walker see ortho next week 34 MIN PT EXAM, CHART REVIEW d/c planning, > 50% OF TIME SPENT WITH EXAM, CHART REVIEW, PT CARE COORDINATION Vitals Vitals Vital Signs Date Time Temp Pulse Resp B/P (MAP) Pulse Ox O2 Delivery O2 Flow Rate FiO2 04/05/19 09:01 Room Air 04/05/19 07:00 98.2 91 18 109/69 (82) 97 98.2 04/04/19 18:20 10.0 Physical Exam General: Alert, Oriented X3, Cooperative, mild distress Heart: Regular rate, Normal S1, Normal S2 Abdomen: Normal bowel sounds, Soft Extremities: No cyanosis Skin: No significant lesion FINAL DIAGNOSIS Problems Medical Problems: (1) Fracture of fifth metacarpal bone Status: Acute (2) Malleolar fracture Status: Acute (3) Tibia fracture Status: Acute Brief Hospital Course Mr. Ojeda is a 29 old [sex] who presented with [ ankle fx ] CONDITION AT DISCHARGE: Improved Discharge Medications Current Medications Acetaminophen/ Hydrocodone Bitart (Lortab 5/325) 1 tab 1X ONCE PO Last administered on 04/03/19at 17:00; Start 04/03/19 at 17:00; Stop 04/03/19 at 17:01 ; Status DC Ibuprofen (Motrin) 600 mg 1X ONCE PO Last administered on 04/03/19at 17:38; Start 04/03/19 at 17:30; Stop 04/03/19 at 17:31; Status DC Orphenadrine Citrate (Norflex) 60 mg 1X ONCE IM Last administered on 04/03/19at 17:38; Start 04/03/19 at 17:30; Stop 04/03/19 at 17:31; Status DC Ondansetron HCl (Zofran) 4 mg PRN Q8HRS PRN IV NAUSEA/VOMITING; Start 04/03/19 at 19:00; Stop 04/04/19 at 18:59; Status DC Fentanyl Citrate (Fentanyl 2ml Vial) 50 mcg PRN Q1HR PRN IV PAIN Last administered on 04/04/19 08:17; Start 04/03/19 at 19:00; Stop 04/04/19 at 18:59; Status DC Sodium Chloride 1,000 ml @ 100 mls/hr Q10H IV Last administered on 04/04/19 12:26; Start 04/03/19 at 18:59; Stop 04/04/19 at 18:58; Status DC Diphenhydramine HCl (Benadryl) 25 mg PRN Q6HRS PRN IVP ITCHING; Start 04/03/19 at 22:30 Oxycodone/ Acetaminophen (Percocet 5/325) 1 tab PRN Q4HRS PRN PO SEVERE PAIN 7- 10 Last administered on 04/05/19 09:01; Start 04/03/19 at 22:30 Sodium Chloride 1,000 ml @ 100 mls/hr Q10H IV Last administered on 04/04/19 00:24; Start 04/04/19 at 00:00 Ondansetron HCl (Zofran) 4 mg PRN Q6HRS PRN IV NAUSEA/VOMITING; Start 04/04/19 at 07:15; Stop 04/04/19 at 20:00; Status DC Fentanyl Citrate (Fentanyl 2ml Vial) 25 mcg PRN Q5MIN PRN IV MILD PAIN 1-3 Last administered on 04/04/19at 11:27; Start 04/04/19 at 07:15; Stop 04/04/19 at 20:00; Status DC Fentanyl Citrate (Fentanyl 2ml Vial) 50 mcg PRN Q5MIN PRN IV MODERATE TO SEVERE PAIN Last administered on 04/04/19at 10:47; Start 04/04/19 at 07:15; Stop at 20:00; Status DC Morphine Sulfate (Morphine Sulfate) 1 mg PRN Q10MIN PRN IV SEVERE PAIN 7-10; Start 04/04/19 at 07:15; Stop 04/04/19 at 20:00; Status DC Ringer's Solution 1,000 ml @ 30 mls/hr Q24H IV ; Start 04/04/19 at 07:05; Stop 04/04/19 at 19:04; Status DC Hydromorphone HCl (Dilaudid) 0.5 mg PRN Q10MIN PRN IV SEV PAIN, Second choice; Start 04/04/19 at 07:15; Stop 04/04/19 at 20:00; Status DC Prochlorperazine Edisylate (Compazine) 5 mg PACU PRN PRN IV NAUSEA, MRX1; Start 04/04/19 at 07:15; Stop 04/04/19 at 20:00; Status DC Bupivacaine HCl/ Epinephrine Bitart (Sensorcain-Mpf Epi 0.5%-1:[id number]) 30 ml 1X ONCE INJ Last administered on 04/04/19at 10:28; Start 04/04/19 at 07:30; Stop 04/04/19 at 07:31; Status DC Cefazolin Sodium/ Dextrose 50 ml @ 100 mls/hr 1X ONCE IV Last administered on 04/04/19at 09:34; Start 04/04/19 at 07:45; Stop 04/04/19 at 08:14; Status DC Fentanyl Citrate (Fentanyl 2ml Vial) 100 mcg STK-MED ONCE .ROUTE ; Start 04/04/19 at 07:54; Stop 04/04/19 at 07:54; Status DC Propofol 20 ml @ As Directed STK-MED ONCE IV ; Start 04/04/19 at 07:57; Stop 04/04/19 at 07:58; Status DC Dexamethasone Sodium Phosphate (Decadron) 4 mg STK-MED ONCE .ROUTE ; Start 04/04/19 at 07:57; Stop 04/04/19 at 07:58; Status DC Lidocaine HCl (Lidocaine Pf 2% Vial) 5 ml STK-MED ONCE .ROUTE ; Start 04/04/19 at 07:57; Stop 04/04/19 at 07:58; Status DC Ondansetron HCl (Zofran) 4 mg STK-MED ONCE .ROUTE ; Start 04/04/19 at 07:57; Stop 04/04/19 at 07:58; Status DC Fentanyl Citrate (Fentanyl 2ml Vial) 100 mcg STK-MED ONCE .ROUTE ; Start 04/04/19 at 07:57; Stop 04/04/19 at 07:58; Status DC Midazolam HCl (Versed) 2 mg STK-MED ONCE .ROUTE ; Start 04/04/19 at 07:58; Stop 04/04/19 at 07:58; Status DC Sevoflurane (Ultane) 60 ml STK-MED ONCE IH ; Start 04/04/19 at 09:36; Stop 04/04/19 at 09:36; Status DC Fentanyl Citrate (Fentanyl 2ml Vial) 100 mcg STK-MED ONCE .ROUTE ; Start 04/04/19 at 10:44; Stop 04/04/19 at 10:45; Status DC Fentanyl Citrate (Fentanyl 2ml Vial) 100 mcg STK-MED ONCE .ROUTE ; Start 04/04/19 at 11:24; Stop 04/04/19 at 11:25; Status DC Multivitamins 10 ml/Thiamine HCl 100 mg/Folic Acid 1 mg/Sodium Chloride 1,011.2 ml @ 100 mls/ hr DAILY IV Last administered on 04/04/19at 14:37; Start 04/04/19 at 13:00; Stop 04/04/19 at 23:07; Status DC Folic Acid (Folic Acid) 1 mg DAILY PO Last administered on 04/05/19at 08:35; Start 04/05/19 at 09:00 Thiamine HCl 100 mg DAILY IM ; Start 04/05/19 at 09:00; Stop 04/10/19 at 08:59; Status UNV Thiamine HCl 100 mg/Dextrose 51 ml @ 100 mls/hr DAILY IV ; Start 04/05/19 at 09:00; Stop 04/09/19 at 09:31; Status UNV Lorazepam (Ativan) 4 mg PRN Q1HR PRN PO For CIWA 8-14; Start 04/04/19 at 12:30 Lorazepam (Ativan) 8 mg PRN Q1HR PRN PO For CIWA 15 or greater; Start 04/04/19 at 12:30 Lorazepam (Ativan Inj) 2 mg PRN Q1HR PRN IV For CIWA 8-14; Start 04/04/19 at 12:30 Lorazepam (Ativan Inj) 4 mg PRN Q1HR PRN IV For CIWA 15 or greater; Start 04/04/19 at 12:30 Haloperidol Lactate (Haldol Inj) 5 mg PRN Q4HRS PRN IVP Hallucinatns,Confusn,Delirium; Start 04/04/19 at 12:30 Diphenhydramine HCl (Benadryl) 25 mg PRN Q15MIN PRN IVP EPS symptoms 2'Haldol admin; Start 04/04/19 at 12:30 Clonidine HCl (Catapres) 0.1 mg PRN Q1HR PRN PO SBP > 180 or DBP > 100, MRX3; Start 04/04/19 at 12:30 Lorazepam (Ativan Inj) 2 mg PRN Q15MIN PRN IV SEE COMMENTS; Start 04/04/19 at 12:30; Status UNV Lorazepam (Ativan Inj) 4 mg PRN Q15MIN PRN IV SEE COMMENTS; Start 04/04/19 at 12:30; Status UNV Potassium Chloride (Klor-Con) 40 meq 1X ONCE PO Last administered on 04/04/19at 14:37; Start 04/04/19 at 12:30; Stop 04/04/19 at 12:34; Status DC Potassium Chloride (Klor-Con) 20 meq DAILYWBKFT PO Last administered on 04/05/19at 08:35; Start 04/05/19 at 08:00 Thiamine Mononitrate (Vitamin B-1) 100 mg DAILY PO Last administered on 04/05/19at 08:35; Start 04/05/19 at 09:00 Multivitamins (Thera M Plus) 1 tab DAILY PO Last administered on 04/05/19at 08:35; Start 04/05/19 at 09:00 Oxycodone/ Acetaminophen (Percocet 5/325) 2 tab PRN Q6HRS PRN PO PAIN; Start 04/05/19 at 09:15 Vital Signs Vital Signs Date Time Temp Pulse Resp B/P (MAP) Pulse Ox O2 Delivery O2 Flow Rate FiO2 04/05/19 11:50 Room Air 04/05/19 11:00 98.8 85 18 133/66 (88) 96 98.8 04/04/19 18:20 10.0 Labs Laboratory Tests Test 04/03/19 18:40 04/04/19 19:48 04/05/19 05:00 White Blood Count 6.0 x10^3/uL (4.0-11.0) 7.4 x10^3/uL (4.0-11.0) Red Blood Count 4.00 x10^6/uL (4.30-5.70) 3.37 x10^6/uL (4.30-5.70) Hemoglobin 13.6 g/dL (13.0-17.5) 11.7 g/dL (13.0-17.5) Hematocrit 38.2 % (39.0-53.0) 32.6 % (39.0-53.0) Mean Corpuscular Volume 96 fL (79-100) 97 fL (79-100) Mean Corpuscular Hemoglobin 34 pg (25-35) 35 pg (25-35) Mean Corpuscular Hemoglobin Concent 36 g/dL (31-37) 36 g/dL (31-37) Red Cell Distribution Width 12.7 % (11.5-14.5) 12.4 % (11.5-14.5) Platelet Count 171 x10^3/uL (140-400) 162 x10^3/uL (140-400) Neutrophils (%) (Auto) 77 % (31-73) 68 % (31-73) Lymphocytes (%) (Auto) 11 % (24-48) 16 % (24-48) Monocytes (%) (Auto) 12 % (0-9) 16 % (0-9) Eosinophils (%) (Auto) 0 % (0-3) 0 % (0-3) Basophils (%) (Auto) 0 % (0-3) 0 % (0-3) Neutrophils # (Auto) 4.7 x10^3/uL (1.8-7.7) 5.1 x10^3/uL (1.8-7.7) Lymphocytes # (Auto) 0.6 x10^3/uL (1.0-4.8) 1.2 x10^3/uL (1.0-4.8) Monocytes # (Auto) 0.7 x10^3/uL (0.0-1.1) 1.2 x10^3/uL (0.0-1.1) Eosinophils # (Auto) 0.0 x10^3/uL (0.0-0.7) 0.0 x10^3/uL (0.0-0.7) Basophils # (Auto) 0.0 x10^3/uL (0.0-0.2) 0.0 x10^3/uL (0.0-0.2) Prothrombin Time 13.4 SEC (11.7-14.0) Prothromb Time International Ratio 1.1 (0.8-1.1) Sodium Level 136 mmol/L (136-145) 139 mmol/L (136-145) Potassium Level 3.4 mmol/L (3.5-5.1) 3.5 mmol/L (3.5-5.1) Chloride Level 97 mmol/L (98-107) 102 mmol/L (98-107) Carbon Dioxide Level 29 mmol/L (21-32) 27 mmol/L (21-32) Anion Gap 10 (6-14) 10 (6-14) Blood Urea Nitrogen 8 mg/dL (8-26) 3 mg/dL (8-26) Creatinine 0.9 mg/dL (0.7-1.3) 0.7 mg/dL (0.7-1.3) Estimated GFR (Cockcroft-Gault) 101.2 135.3 BUN/Creatinine Ratio 9 (6-20) 4 (6-20) Glucose Level 172 mg/dL (70-99) 106 mg/dL (70-99) Calcium Level 9.1 mg/dL (8.5-10.1) 8.4 mg/dL (8.5-10.1) Total Bilirubin 1.9 mg/dL (0.2-1.0) 0.7 mg/dL (0.2-1.0) Aspartate Amino Transf (AST/SGOT) 82 U/L (15-37) 41 U/L (15-37) Alanine Aminotransferase (ALT/SGPT) 100 U/L (16-63) 61 U/L (16-63) Alkaline Phosphatase 91 U/L (46-116) 69 U/L (46-116) Total Protein 7.3 g/dL (6.4-8.2) 6.3 g/dL (6.4-8.2) Albumin 4.2 g/dL (3.4-5.0) 3.1 g/dL (3.4-5.0) Albumin/Globulin Ratio 1.4 (1.0-1.7) 1.0 (1.0-1.7) Urine Opiates Screen Pos (NEG) Urine Methadone Screen Neg (NEG) Urine Barbiturates Neg (NEG) Urine Phencyclidine Screen Neg (NEG) Urine Amphetamine/Methamphetamine Neg (NEG) Urine Benzodiazepines Screen Pos (NEG) Urine Cocaine Screen Neg (NEG) Urine Cannabinoids Screen Pos (NEG) Urine Ethyl Alcohol Neg (NEG) Laboratory Tests Test 04/04/19 19:48 04/05/19 05:00 Urine Opiates Screen Pos (NEG) Urine Methadone Screen Neg (NEG) Urine Barbiturates Neg (NEG) Urine Phencyclidine Screen Neg (NEG) Urine Amphetamine/Methamphetamine Neg (NEG) Urine Benzodiazepines Screen Pos (NEG) Urine Cocaine Screen Neg (NEG) Urine Cannabinoids Screen Pos (NEG) Urine Ethyl Alcohol Neg (NEG) White Blood Count 7.4 x10^3/uL (4.0-11.0) Red Blood Count 3.37 x10^6/uL (4.30-5.70) Hemoglobin 11.7 g/dL (13.0-17.5) Hematocrit 32.6 % (39.0-53.0) Mean Corpuscular Volume 97 fL (79-100) Mean Corpuscular Hemoglobin 35 pg (25-35) Mean Corpuscular Hemoglobin Concent 36 g/dL (31-37) Red Cell Distribution Width 12.4 % (11.5-14.5) Platelet Count 162 x10^3/uL (140-400) Neutrophils (%) (Auto) 68 % (31-73) Lymphocytes (%) (Auto) 16 % (24-48) Monocytes (%) (Auto) 16 % (0-9) Eosinophils (%) (Auto) 0 % (0-3) Basophils (%) (Auto) 0 % (0-3) Neutrophils # (Auto) 5.1 x10^3/uL (1.8-7.7) Lymphocytes # (Auto) 1.2 x10^3/uL (1.0-4.8) Monocytes # (Auto) 1.2 x10^3/uL (0.0-1.1) Eosinophils # (Auto) 0.0 x10^3/uL (0.0-0.7) Basophils # (Auto) 0.0 x10^3/uL (0.0-0.2) Sodium Level 139 mmol/L (136-145) Potassium Level 3.5 mmol/L (3.5-5.1) Chloride Level 102 mmol/L (98-107) Carbon Dioxide Level 27 mmol/L (21-32) Anion Gap 10 (6-14) Blood Urea Nitrogen 3 mg/dL (8-26) Creatinine 0.7 mg/dL (0.7-1.3) Estimated GFR (Cockcroft-Gault) 135.3 BUN/Creatinine Ratio 4 (6-20) Glucose Level 106 mg/dL (70-99) Calcium Level 8.4 mg/dL (8.5-10.1) Total Bilirubin 0.7 mg/dL (0.2-1.0) Aspartate Amino Transf (AST/SGOT) 41 U/L (15-37) Alanine Aminotransferase (ALT/SGPT) 61 U/L (16-63) Alkaline Phosphatase 69 U/L (46-116) Total Protein 6.3 g/dL (6.4-8.2) Albumin 3.1 g/dL (3.4-5.0) Albumin/Globulin Ratio 1.0 (1.0-1.7) Allergies Allergies Coded Allergies Type Severity Reaction Last Updated Verified No Known Drug Allergies 04/03/19 No Disposition/Orders: D/C to Home Patient Instructions d/c planning 34 min MIKALA THOMAS MD Apr 05, 2019 13:10
[2019-04-05] MEDS ORDERED: OXYC1TAB15 PO (13:13)
[2019-04-05] MEDS ORDERED: THIA100T22 PO (13:13)
[2019-04-05] MEDS ORDERED: MULT1TAB90 PO (13:13)
[2019-04-05] MEDS ORDERED: FOLI1TAB16 PO (13:13)
--- NOTE | 2019-04-05 13:15 | DISCH ---
DISCHARGE INSTRUCTIONS Condition on Discharge Condition on Discharge: Stable Activity After Discharge Activity Instructions for Disc: Activity as tolerated, Progressive ambulation Bathing Instructions: Shower-keep dressing dry, No Tub Bath until see Lifting Instructions after Dis: No heavy lifting, No pulling or pushing Driving Instructions after Dis: Do not drive Diet after Discharge Diet after Discharge: Regular Checks after Discharge Checks after discharge: Check blood press - daily Contacting the DRKayla after DC Call your doctor for: If your condition worsens Treatment/Equipment after DC Adaptive Equipment Issued: Crutches, Front wheeled walker MIKALA THOMAS MD Apr 05, 2019 13:15
[2019-04-05 15:00] VITALS: BP 112/76
== END 2019-04-05 22:30 | disposition home or self-care (01) | DRG 493 ==
LOC: ER 16:28 → 4 NORTH 18:54
PROVIDERS: ADMIT Internal Medicine; ATTEND Internal Medicine
PROC: 0QSJ04Z Reposition Right Fibula with Internal Fixation Device, Open Approach (ICD-10-PCS; 2019-04-04)
PROC: 0QSG04Z Reposition Right Tibia with Internal Fixation Device, Open Approach (ICD-10-PCS; principal; 2019-04-04 08:45)
DX: S82.841A Displaced bimalleolar fracture of right lower leg, initial encounter for closed fracture (principal); S82.221A Displaced transverse fracture of shaft of right tibia, initial encounter for closed fracture; S62.308A Unspecified fracture of other metacarpal bone, initial encounter for closed fracture; S92.352A Displaced fracture of fifth metatarsal bone, left foot, initial encounter for closed fracture; E66.9 Obesity, unspecified; F10.10 Alcohol abuse, uncomplicated; F12.10 Cannabis abuse, uncomplicated; F17.210 Nicotine dependence, cigarettes, uncomplicated; Z79.899 Other long term (current) drug therapy; W18.39XA Other fall on same level, initial encounter; Y93.89 Activity, other specified; Y92.89 Other specified places as the place of occurrence of the external cause; Y99.8 Other external cause status
CPT/HCPCS: 36415; 73590; 73610; 73630; 73700; 76000; 80053; 80307; 85025; 85610; 96365; 96372; 96375; A7015; C1713; J0696; J1100; J2001; J2250; J2360; J2405; J2704; J3010; J3490; J7030; 97116; 99285-25; G0378

== ENCOUNTER 2019-05-03 13:40 | Emergency (ER) | payer SELFPAY ==
[~2019-05-03] VITALS: Ht 172.7 cm; Wt 81.6 kg
[~2019-05-03 13:40] MED LIST: FOLI1TAB16 PO; MULT1TAB90 PO; OXYC1TAB15 PO; THIA100T22 PO
--- NOTE | 2019-05-03 14:51 | PHYS DOC ---
Past Medical History Past Medical History: No Pertinent History Past Surgical History: Other Additional Past Surgical Histo: dennys in ankle Alcohol Use: Occasionally Drug Use: Marijuana Adult General Chief Complaint Chief Complaint: SUTURE/STAPLE REMOVAL HPI HPI Patient is a 29 year old male who presents with 3 weeks ago was at a concert when, [employer] and got a malleolus fracture. Patient had surgery by Dr. Mcgowan on April 04, 2019. Patient is here today states he did not follow up with surgery but he was wearing his dennys out he states he also took the cast off himself yesterday. Patient has dennys up on the right leg to the medial ankle and the lateral ankle. Patient denies any increased in pain. Review of Systems Review of Systems Constitutional: Denies fever or chills [] Musculoskeletal: Right lower leg operative dennys. Denies back pain or joint pain [] Integument: Denies rash or skin lesions [] Neurologic: Denies headache, focal weakness or sensory changes [] All other systems were reviewed and found to be within normal limits, except as documented in this note. Allergies Allergies Allergies Coded Allergies Type Severity Reaction Last Updated Verified No Known Drug Allergies 04/03/19 No Physical Exam Physical Exam Constitutional: Well developed, well nourished, no acute distress, non-toxic appearance. [] Skin: Right lower leg and foot are dusky. Lateral and medial dennys. Warm, dry, no erythema, no rash. [] Extremities: No tenderness, no cyanosis, no clubbing, ROM intact, lower leg and foot 2+ edema. [] Neurologic: Alert and oriented X 3, normal motor function, normal sensory function, no focal deficits noted. [] Psychologic: Affect normal, judgement normal, mood normal. [] Current Patient Data Vital Signs Vital Signs Date Time Temp Pulse Resp B/P (MAP) Pulse Ox O2 Delivery O2 Flow Rate FiO2 05/03/19 15:17 71 18 115/70 (85) 100 Room Air 05/03/19 14:00 98.2 98.2 Lab Values Laboratory Tests Test 05/03/19 15:11 White Blood Count 6.3 x10^3/uL (4.0-11.0) Red Blood Count 4.23 x10^6/uL (4.30-5.70) L Hemoglobin 14.1 g/dL (13.0-17.5) Hematocrit 40.3 % (39.0-53.0) Mean Corpuscular Volume 95 fL (79-100) Mean Corpuscular Hemoglobin 33 pg (25-35) Mean Corpuscular Hemoglobin Concent 35 g/dL (31-37) Red Cell Distribution Width 11.8 % (11.5-14.5) Platelet Count 245 x10^3/uL (140-400) Neutrophils (%) (Auto) 63 % (31-73) Lymphocytes (%) (Auto) 28 % (24-48) Monocytes (%) (Auto) 8 % (0-9) Eosinophils (%) (Auto) 2 % (0-3) Basophils (%) (Auto) 1 % (0-3) Neutrophils # (Auto) 3.9 x10^3/uL (1.8-7.7) Lymphocytes # (Auto) 1.7 x10^3/uL (1.0-4.8) Monocytes # (Auto) 0.5 x10^3/uL (0.0-1.1) Eosinophils # (Auto) 0.1 x10^3/uL (0.0-0.7) Basophils # (Auto) 0.0 x10^3/uL (0.0-0.2) Sodium Level 141 mmol/L (136-145) Potassium Level 4.2 mmol/L (3.5-5.1) Chloride Level 106 mmol/L (98-107) Carbon Dioxide Level 27 mmol/L (21-32) Anion Gap 8 (6-14) Blood Urea Nitrogen 5 mg/dL (8-26) L Creatinine 0.8 mg/dL (0.7-1.3) Estimated GFR (Cockcroft-Gault) 116.0 BUN/Creatinine Ratio 6 (6-20) Glucose Level 92 mg/dL (70-99) Lactic Acid Level 1.6 mmol/L (0.4-2.0) Calcium Level 9.2 mg/dL (8.5-10.1) Total Bilirubin 0.3 mg/dL (0.2-1.0) Aspartate Amino Transferase (AST) 15 U/L (15-37) Alanine Aminotransferase (ALT) 22 U/L (16-63) Alkaline Phosphatase 64 U/L (46-116) Total Protein 7.0 g/dL (6.4-8.2) Albumin 3.8 g/dL (3.4-5.0) Albumin/Globulin Ratio 1.2 (1.0-1.7) Laboratory Tests 05/03/19 15:11 Laboratory Tests 05/03/19 15:11 EKG EKG [] Radiology/Procedures Radiology/Procedures [] Impressions: [facility] [address] [place] [address] IMAGING REPORT Signed PATIENT: MARY AGUILERA ACCOUNT: [id number] : 1990 LOCATION: ER AGE: 29 SEX: M EXAM STATUS: REG ER ORD. PHYSICIAN: SHUBHAM DASILVA APRN REASON: swelling, post op surgery PROCEDURE: VENOUS LOWER EXTREMITY RIGHT Right lower extremity venous doppler ultrasound Indication: Right leg swelling, postop. Technique: Color Doppler, grayscale, and spectral waveform analysis is used to evaluate the right femoral and popliteal veins. Findings: No evidence of deep venous thrombosis. Normal response to augmentation, normal compressibility and normal phasicity is demonstrated. Visualized calf veins are patent. Impression: Negative for deep venous thrombosis Electronically signed by: Samy Asher MD (05/03/2019 2:59 PM) [id number] DICTATED and SIGNED BY: SAMY ASHER MD DATE: 05/03/19 1459 [facility] [address] [facility] [place] [address] IMAGING REPORT Signed PATIENT: MARY AGUILERA ACCOUNT: [id number] : 1990 LOCATION: ER AGE: 29 SEX: M EXAM STATUS: REG ER ORD. PHYSICIAN: SHUBHAM DASILVA APRN REASON: swelling, post op surgery X 3 weeks ago PROCEDURE: ANKLE RIGHT 3V ANKLE RIGHT 3V, FOOT RIGHT 3V, TIBIA FIBULA RIGHT History: Swelling, postop 3 weeks ago. Three-view right ankle Comparison with prior images of 04/03/2019. 2 partially threaded medial malleolar screws are now in place with reduction of fracture. Reduction of distal fibular fracture with lateral plate and multiple screws. Skin dennys, place. Reduction of the tibiotalar joint. Mild ossification or calcification at the distal tibiofibular syndesmosis may indicate syndesmotic tear. Soft tissues appear grossly intact. Skin dennys are identified. IMPRESSION: 1. Reduction and internal fixation of bimalleolar fractures. Reduction of tibiotalar joint. 2. Mild calcification/ossification of the distal tibiofibular syndesmosis could indicate traumatic tear. 3 view right foot No evidence of acute fracture or dislocation. Joints and alignment appear intact. No significant soft tissue abnormality. IMPRESSION: No additional abnormality. Two-view right tibia fibula No additional fracture identified at the proximal to mid tibia or fibula. No aggressive bone destruction. No periosteal reaction. Soft tissues appear unremarkable. IMPRESSION: No additional acute fracture. Electronically signed by: Samy Asher MD (05/03/2019 3:25 PM) [id number] DICTATED and SIGNED BY: SAMY ASHER MD DATE: 05/03/19 1525 Course & Med Decision Making Course & Med Decision Making Patient is a 29 year old male who presents with 3 weeks ago was at a concert when, [facility] and got a malleolus fracture. Patient had surgery by Dr. Mcgowan on April 04, 2019. Patient is here today states he did not follow up with surgery but he was wearing his dennys out he states he also took the cast off himself yesterday. Patient has dennys up on the right leg to the medial ankle and the lateral ankle. Patient denies any increased in pain. Patient's right lower leg from right above the ankle down into the foot is dusky in color and 2+ slightly pitting edema. Cap refill is less than 3 seconds. He is swelling and cannot feel a pulse. Patient denies any calf tenderness. Patient denies any numbness or tingling. Patient denies any fevers. The surgical incisions are healed together there is no drainage from them. Patient can wiggle his toes. Patient is ambulatory with steady gait but he does have crutches. I have spoken to Dr Mcgowan. He states that as long as we do not find anything acutely wrong with results on the patient that he will be happy to see him in the office tomorrow for suture removal. He states to place a splint back on the leg. He states to have the patient keep his leg elevated and not to walk on it. Ultrasound shows no acute findings. X-rays show no acute findings. Blood work unremarkable. A stirrup splint is placed on the patient and he is to follow-up with Dr. Mcgowan tomorrow in office to have dennys removed be fitted for a bit. Stirrup splint placed by nurse. Splint Assessment: Neurovascularly intact post splint placement with good fit. Dragon Disclaimer Dragon Disclaimer This electronic medical record was generated, in whole or in part, using a voice recognition dictation system. Departure Departure Impression: Primary Impression: Encounter for medical screening examination Disposition: HOME, SELF-CARE Condition: STABLE Referrals: NO PCP (PCP) LULÚ MCGOAWN MD Patient Instructions: Bimalleolar Fracture, Ankle, Adult, Displaced (ORIF), Care After Additional Instructions: Follow-up with Dr. Mcgowan's office tomorrow for suture removal. Do not take the splint off and let Dr. Mcgowan's office take the splint off. Keep the leg eleva kostaSHUBHAM LAY TEACHING YOUNG May 03, 2019 14:51
--- NOTE | 2019-05-03 15:02 | RAD ---
Right lower extremity venous doppler ultrasound Indication: Right leg swelling, postop. Technique: Color Doppler, grayscale, and spectral waveform analysis is used to evaluate the right femoral and popliteal veins. Findings: No evidence of deep venous thrombosis. Normal response to augmentation, normal compressibility and normal phasicity is demonstrated. Visualized calf veins are patent. Impression: Negative for deep venous thrombosis Electronically signed by: Samy Asher MD (05/03/2019 2:59 PM) [id number]
[2019-05-03 15:26] LABS: BASO % 1 % (0-3); EOS # 0.1 x10^3/uL (0.0-0.7); EOS % 2 % (0-3); HEMATOCRIT 40.3 % (39.0-53.0); HEMOGLOBIN 14.1 g/dL (13.0-17.5); LYMPH # 1.7 x10^3/uL (1.0-4.8); LYMPH % 28 % (24-48); MEAN CORPUSCULAR HEMOGLOBIN 33 pg (25-35); MEAN CORPUSCULAR HGB CONC 35 g/dL (31-37); MEAN CORPUSCULAR VOLUME 95 fL (79-100); MONO # 0.5 x10^3/uL (0.0-1.1); MONO % 8 % (0-9); NEUT # 3.9 x10^3/uL (1.8-7.7); NEUT % 63 % (31-73); PLATELET COUNT 245 x10^3/uL (140-400); RED BLOOD COUNT 4.23 x10^6/uL (4.30-5.70); RED CELL DISTRIBUTION WIDTH 11.8 % (11.5-14.5); WHITE BLOOD COUNT 6.3 x10^3/uL (4.0-11.0)
--- NOTE | 2019-05-03 15:28 | RAD ---
ANKLE RIGHT 3V, FOOT RIGHT 3V, TIBIA FIBULA RIGHT History: Swelling, postop 3 weeks ago. Three-view right ankle Comparison with prior images of 04/03/2019. 2 partially threaded medial malleolar screws are now in place with reduction of fracture. Reduction of distal fibular fracture with lateral plate and multiple screws. Skin dennys, place. Reduction of the tibiotalar joint. Mild ossification or calcification at the distal tibiofibular syndesmosis may indicate syndesmotic tear. Soft tissues appear grossly intact. Skin dennys are identified. IMPRESSION: 1. Reduction and internal fixation of bimalleolar fractures. Reduction of tibiotalar joint. 2. Mild calcification/ossification of the distal tibiofibular syndesmosis could indicate traumatic tear. 3 view right foot No evidence of acute fracture or dislocation. Joints and alignment appear intact. No significant soft tissue abnormality. IMPRESSION: No additional abnormality. Two-view right tibia fibula No additional fracture identified at the proximal to mid tibia or fibula. No aggressive bone destruction. No periosteal reaction. Soft tissues appear unremarkable. IMPRESSION: No additional acute fracture. Electronically signed by: Samy Asher MD (05/03/2019 3:25 PM) [id number]
[2019-05-03 15:36] LABS: CALCIUM 9.2 mg/dL (8.5-10.1); CREATININE 0.8 mg/dL (0.7-1.3); POTASSIUM 4.2 mmol/L (3.5-5.1)
[2019-05-03 15:41] LABS: ALBUMIN 3.8 g/dL (3.4-5.0); ALBUMIN/GLOBULIN RATIO 1.2 (1.0-1.7); TOTAL BILIRUBIN 0.3 mg/dL (0.2-1.0)
[2019-05-03 16:28] VITALS: BP 104/61
== END 2019-05-03 16:45 | disposition home or self-care (01) ==
LOC: ER 13:40
DX: S82.841D Displaced bimalleolar fracture of right lower leg, subsequent encounter for closed fracture with routine healing (principal); M79.604 Pain in right leg; X58.XXXD Exposure to other specified factors, subsequent encounter
CPT/HCPCS: 29515; 36415; 73590; 73610; 73630; 80053; 83605; 85025; 93971; 99285